=== PATIENT | female | born 1980 | race American Indian/Alaskan Native ===

== ENCOUNTER 2017-11-28 05:39 | Emergency (ER) | payer OTHER ==
[2017-11-28 11:21] LABS: Basophils # (Auto) 0.1 K/mm3 (0.0-0.1); Basophils % (Auto) 0.7 % (0.0-1.8); Eosinophils % (Auto) 0.1 % (0.0-4.3); Hematocrit 44.4 % (30.3-42.9); Hemoglobin 15.4 gm/dl (10.1-14.3); Lymphocytes # (Auto) 1.3 K/mm3 (1.2-5.4); Lymphocytes % (Auto) 14.1 % (13.4-35.0); Mean Corpuscular HGB Conc 35 % (30-34); Mean Corpuscular Hemoglobin 34 pg (28-32); Mean Corpuscular Volume 98 fl (79-97); Monocytes # (Auto) 0.7 K/mm3 (0.0-0.8); Monocytes % (Auto) 6.9 % (0.0-7.3); Platelet Count 180 K/mm3 (140-440); Red Blood Count 4.56 M/mm3 (3.65-5.03); Red Cell Distribution Width 12.4 % (13.2-15.2)
[2017-11-28 11:47] LABS: BUN/Creatinine Ratio 8; Blood Urea Nitrogen 5 mg/dL (7-17); Hemolysis Index 16
[2017-11-28] MEDS ORDERED: BENADRYL PO ONE (20:07)
[2017-11-29] MEDS ORDERED: BENADRYL PO ONE (08:54)
[2017-11-29] MEDS ORDERED: ATIVAN PO ONE (08:54)
--- NOTE | 2017-11-29 08:57 | Emergency Department Report ---
HPI - General Chief Complaint: Psych Time Seen by Provider: 11/28/17 09:18 ED Past Medical Hx - Past Medical History Previous Medical History?: No Additional medical history: Depression - Surgical History Past Surgical History?: No - Social History Smoking Status: Never Smoker Substance Use Type: None ED Review of Systems ROS: Stated complaint: MH EVAL Other details as noted in HPI Physical Exam - Physical Exam Vital Signs: Vital Signs 11/28/17 11/28/17 11/28/17 06:11 06:24 12:16 Temperature 98.2 F 98.2 F 97.7 F Pulse Rate 99 H 92 H 66 Respiratory 18 20 18 Rate Blood Pressure 124/83 Blood Pressure 124/83 118/77 [Left] O2 Sat by Pulse 100 96 98 Oximetry 11/28/17 23:21 Temperature 97.7 F Pulse Rate 67 Respiratory 18 Rate Blood Pressure Blood Pressure 110/73 [Left] O2 Sat by Pulse 99 Oximetry ED Course Vital Signs 11/28/17 11/28/17 11/28/17 06:11 06:24 12:16 Temperature 98.2 F 98.2 F 97.7 F Pulse Rate 99 H 92 H 66 Respiratory 18 20 18 Rate Blood Pressure 124/83 Blood Pressure 124/83 118/77 [Left] O2 Sat by Pulse 100 96 98 Oximetry 11/28/17 23:21 Temperature 97.7 F Pulse Rate 67 Respiratory 18 Rate Blood Pressure Blood Pressure 110/73 [Left] O2 Sat by Pulse 99 Oximetry ED Medical Decision Making - Lab Data Result diagrams: 11/28/17 10:59 11/28/17 10:59 - Medical Decision Making Patient was seen by Dr. Mendoza was placed on a 1013 for suicidal ideation I was notified of the patient needed something for her aunt bites as well as stress. Mr. Vieyra of the mental health counselor to evaluate her felt that she was a candidate for inpatient therapy. She was given some Benadryl for amp bites or cellulitis appreciated no anaphylaxis is noted she is having essentially some insect-related itch and stenting. Benadryl was ordered. She was also given Ativan for her anxiety. She will be medically cleared for psychiatric evaluation. For suicidal ideation. Critical care attestation.: If time is entered above; I have spent that time in minutes in the direct care of this critically ill patient, excluding procedure time. ED Disposition Clinical Impression: Suicidal ideation, Bite, fire ant Disposition: [facility] PS[facility] HOSP/PSY UNIT Is pt being admited?: No Condition: Stable Referrals: PRIMARY CARE, [Primary Care Provider] - 3-5 Days
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
--- NOTE | 2017-11-29 19:55 | Emergency Department Report ---
Blank Doc - Documentation Documentation: I was asked to evaluate the patient's right upper extremity by nursing. Patient states she laid in and bed has several bites to the right forearm that are painful and itching. Multiple erythematous papular lesions are seen encompassing mostly the anterior right forearm consistent with ant bites. The patient was administered Benadryl previously. Also start her on scheduled prednisone 60 mg by mouth 3 days, Benadryl 50 mg every 6 hours 3 days and a 7 day course of Keflex
[2017-11-29] MEDS: KEFLEX PO SCH (22:30)
[2017-11-29] MEDS: DELTASONE PO SCH (22:30)
[2017-11-29] MEDS: BENADRYL PO SCH (22:30)
[2017-11-29] MEDS: PROzac PO SCH (22:40)
[2017-11-30] MEDS: BENADRYL PO SCH ×4 (00:30→18:43)
[2017-11-30] MEDS: KEFLEX PO SCH ×4 (00:34→18:43)
[2017-11-30 07:20] LABS: Bilirubin,Urine NEG (Negative); Blood,Urine NEG (Negative); Color,Urine Yellow (Yellow); HCG Qualitative,Urine Negative (Negative); Protein,Urine <15 mg/dL mg/dL (Negative)
[2017-11-30 07:30] LABS: Amphetamine Screen,Urine PRESUMPTIVE NEGATIVE; Benzodiazepines Screen,Urine PRESUMPTIVE NEGATIVE; Cocaine Screen,Urine PRESUMPTIVE NEGATIVE; Methadone Screen,Urine PRESUMPTIVE NEGATIVE; Opiate Screen,Urine PRESUMPTIVE NEGATIVE
[2017-11-30 07:41] LABS: Cannabinoid Screen,Urine PRESUMPTIVE POSITIVE
[2017-11-30] MEDS: DELTASONE PO SCH (10:45)
[2017-11-30] MEDS: PROzac PO SCH (10:45)
[2017-12-01] MEDS: BENADRYL PO SCH ×4 (06:53→18:28)
[2017-12-01] MEDS: KEFLEX PO SCH ×4 (06:54→18:29)
[2017-12-01] MEDS ORDERED: TYLENOL ONE (06:55)
[2017-12-01] MEDS ORDERED: TYLENOL PO ONE (06:55)
[2017-12-01] MEDS: DELTASONE PO SCH (11:02)
[2017-12-01] MEDS: PROzac PO SCH (11:02)
--- NOTE | 2017-12-01 13:22 | Progress Note ---
Subjective - Reason for Consult Consult date: 12/01/17 Reason for consult: Psychiatry Follow-up - Chief Complaint Chief complaint: 37 y.o. AA female presenting to the ER for severe depression and SI's. Today the patient is calm and cooperative during the assessment. She stated having life stressors that was overwhelming for her when she arrived at the hospital. She stated having financial problems along with other issues. She stated that she was suicidal on arrival to the ER. She stated that she has had time to think about her future since being in the ER. She stated that her "mental health " is her priority and everything else will work out. She denies SI/HI's and AVH' s. She denies any side effects of her medication. Mental Status Exam - Vital signs Last Vital Signs Temp 98.3 F 12/01/17 10:41 Pulse 88 12/01/17 10:41 Resp 18 12/01/17 10:41 BP 139/82 12/01/17 10:41 Pulse Ox 99 12/01/17 10:41 - Exam Narrative exam: MSE: Appearance: calm, cooperative Behavior: regular eye contact Speech: regular rate and tone Mood: "okay" Affect: normal Thought Process: circumstantial Thought Content: denies SI/HI's and AVH's Motor Activity: lying in bed Cognition: A/O x 3 Insight: variable Judgment: variable Assessment and Plan Impression: MDD, Severe Type. Cannabis Use DO. Today the patient is calm and cooperative during the assessment. DDx: R/O Bipolar DO, R/O Substance Mood DO Recommendation/Plan: Evaluate 1013 in 24 hours to determine proper dispo. Continue Prozac 20 mg PO daily for depression. Discussed possible sucidality/ medication induced brijesh reference Prozac with patient.
[2017-12-02] MEDS: BENADRYL PO SCH ×3 (00:08→12:27)
[2017-12-02] MEDS: KEFLEX PO SCH ×3 (00:09→12:25)
[2017-12-02] MEDS: PROzac PO SCH (10:39)
--- NOTE | 2017-12-02 13:30 | Progress Note ---
Subjective - Reason for Consult Consult date: 12/02/17 Reason for consult: Psychiatry Follow-up - Chief Complaint Chief complaint: "I am better" 37 y.o. AA female presenting to the ER for severe depression and SI's. Today the patient is calm and cooperative during the assessment. Today the patient reflected about her life decisions. She stated that she have a appt with the [facility] for outpatient psy services 04 Dec 2017. She denies SI/HI and AVH's. She denies any side effects of her medication. Mental Status Exam - Vital signs Last Vital Signs Temp 98.1 F 12/01/17 22:00 Pulse 89 12/01/17 22:00 Resp 18 12/01/17 22:00 BP 141/99 12/01/17 22:00 Pulse Ox 98 12/01/17 22:00 - Exam Narrative exam: MSE: Appearance: calm, cooperative Behavior: regular eye contact Speech: regular rate and tone Mood: "okay" Affect: normal Thought Process: linear Thought Content: denies SI/HI's and AVH's Motor Activity: lying in bed Cognition: A/O x 3 Insight: appropriate Judgment: appropriate Assessment and Plan Impression: MDD, Severe Type. Cannabis Use DO. Today the patient is calm and cooperative during the assessment. The patient is no threat to self. DDx: R/O Bipolar DO, R/O Substance Mood DO Recommendation/Plan: Rescind 1013. Continue Prozac 20 mg PO daily for depression. Discussed possible sucidality/medication induced brijesh reference Prozac with patient. The patient has a scheduled appt with [facility] for outpatient psy services on 04 Dec 2017.
--- NOTE | 2017-12-02 16:38 | Emergency Department Report ---
Blank Doc - Documentation Documentation: I was asked by the nurse to assess this patient for possible discharge. Patient presented with suicidal ideation. Patient has been evaluated by our psychiatric team. They recommended the recent 1013 and patient can be discharged home. On exam patient is calm and cooperative denying any suicidal or homicidal ideation. Patient denied any auditory or visual hallucination. Patient will follow-up as an outpatient with our psychiatric team at the [facility].
[2017-12-02 17:00] VITALS: BP 122/85
== END 2017-12-02 17:24 ==
LOC: ED 05:39 → EEVIPCON 05:39 → ED 12-02 17:24
DX: F32.9 Major depressive disorder, single episode, unspecified (principal); S50.861A Insect bite (nonvenomous) of right forearm, initial encounter; R45.851 Suicidal ideations; F12.10 Cannabis abuse, uncomplicated; F90.9 Attention-deficit hyperactivity disorder, unspecified type; Y93.89 Activity, other specified; Y92.89 Other specified places as the place of occurrence of the external cause; Y99.8 Other external cause status
CPT/HCPCS: 36415; 80048; 80307; 81001; 81025; 85025; 99285; G0480; J7512; 80320